=== PATIENT | female | born 1965 | race Caucasian/White ===

== ENCOUNTER 2020-09-26 12:14 | Outpatient (CLI) | payer OTHER, SELFPAY ==
--- NOTE | ~2020-09-26 | US_ITS ---
EXAMINATION:US venous doppler LE LT INDICATION:Left leg pain TECHNIQUE: Multiple grayscale, color flow and Doppler images of the left lower extremity deep venous systems were obtained and reviewed. COMPARISON:No prior studies for comparison. FINDINGS: The common femoral, superficial femoral and popliteal veins demonstrate normal respiratory variation, augmentation and compressibility. Color flow is also seen within the posterior tibial, pe roneal, greater saphenous and profunda veins. IMPRESSION: 1: No lower extremity deep venous thrombosis. Reviewed, dictated and finalized at location A.
== END 2020-09-26 12:15 | disposition home or self-care (01) ==
PROVIDERS: PCP Family Medicine; Visit Provider Podiatrist Foot & Ankle Surgery
DX: M79.662 Pain in left lower leg (principal)
CPT/HCPCS: 93971